=== PATIENT | female | born 2000 | race Caucasian/White ===

== ENCOUNTER 2020-08-28 19:42 | Emergency (ER) | payer BC ==
[~2020-08-28] VITALS: Ht 157.5 cm; Wt 91.3 kg
[2020-08-28 19:55] VITALS: BP 110/70
--- NOTE | 2020-08-28 20:00 | PHYS DOC ---
General Adult EDM: Chief Complaint: Toe pain HPI: HPI: Patient is a 20-year-old female presents emergency department with complaints of swelling, pain, and bruising to the right lateral foot after she accidentally kicked a stove last night. Patient denies any numbness, tingling, or weakness of the affected extremity. She states she has been able to bear weight but has ambulated with a limp. She currently rates her pain a 6 out of 10 on the pain scale, she denies taking anything for pain relief prior to arrival. Review of Systems: Review of Systems: Complete ROS is negative unless otherwise noted in HPI. Allergies: Allergies: Allergies Coded Allergies Type Severity Reaction Last Updated Verified No Known Drug Allergies 08/28/20 No Physical Exam: PE: See Above Constitutional: Well developed, well nourished, no acute distress, non-toxic appearance. [] HENT: Normocephalic, atraumatic, bilateral external ears normal, nose normal, obese. [] Eyes: PERRLA, EOMI, conjunctiva normal, no discharge. [] Neck: Normal range of motion, no stridor. [] Cardiovascular:Heart rate regular rhythm Lungs & Thorax: Respirations even and unlabored, no retractions, no respiratory distress Skin: Warm, dry, no erythema, no rash, bruising to the lateral right foot. [] Extremities: Right fifth toe: Tenderness to palpation without obvious deformity or crepitus, no cyanosis, ROM limited due to pain, normal sensation, 1+ edema; right foot: Distal lateral tenderness to palpation without obvious deformity or crepitus, 1+ edema, no cyanosis, normal sensation, 2+ pedal pulse Neurologic: Alert and oriented X 3, no focal deficits noted. [] Psychologic: Affect normal, judgement normal, mood normal. [] EKG: EKG: [] Radiology/Procedures: Radiology/Procedures: PROCEDURE: FOOT RIGHT 3V 3 views the right foot dated 08/28/2020. No comparison available. CLINICAL INDICATION: Fifth toe pain and swelling after injury. FINDINGS: 3 views the right foot show a transverse fracture through the base of fifth proximal phalanx, mildly displaced. There is overlying soft tissue swelling. No additional fractures are seen. No periostitis or bone destruction. IMPRESSION: Mildly displaced fracture of the fifth proximal phalanx. Heart Score: Risk Factors: Risk Factors: DM, Current or recent (<one month) smoker, HTN, HLP, family history of CAD, obesity. Risk Scores: Score 0 - 3: 2.5% MACE over next 6 weeks - Discharge Home Score 4 - 6: 20.3% MACE over next 6 weeks - Admit for Clinical Observation Score 7 - 10: 72.7% MACE over next 6 weeks - Early Invasive Strategies Course & Med Decision Making: Course & Med Decision Making Pertinent Labs and Imaging studies reviewed. (See chart for details) [] Dragon Disclaimer: Dragon Disclaimer: This electronic medical record was generated, in whole or in part, using a voice recognition dictation system. Departure Departure: Impression: Primary Impression: Fracture of fifth toe, right, closed Qualified Codes: S92.501A - Displaced unspecified fracture of right lesser toe(s), initial encounter for closed fracture Disposition: 01 DC HOME SELF CARE/HOMELESS Condition: STABLE Referrals: [facility] (PCP) BRAULIO BARRETT MD Patient Instructions: George Taping of Toes, Toe Fracture Additional Instructions: Fill the prescription and take it as directed. George tape toes as instructed. You may take Tylenol as needed for pain, take the hydrocodone for severe pain only, DO NOT TAKE MORE THAN 4000 mg of Tylenol in a 24 hour period. Recommend ice, elevation, and rest of the affected foot. Follow-up with Dr. Barrett next week, return to the ER if your symptoms worsen. Scripts Hydrocodone/Acetaminophen (Hydrocodone-Acetamin 5-325 mg) 1 Each Tablet 0.5-1 EACH PO Q6HRS PRN for SEVERE PAIN 7-10 for 3 Days, #10 TAB 0 Refills Prov: RUSSELL DOLAN WATER QUALITY TECHNICIAN 08/28/20 RUSSELL DOLAN WATER QUALITY TECHNICIAN Aug 28, 2020 20:00
--- NOTE | 2020-08-28 20:19 | RAD ---
3 views the right foot dated 08/28/2020. No comparison available. CLINICAL INDICATION: Fifth toe pain and swelling after injury. FINDINGS: 3 views the right foot show a transverse fracture through the base of fifth proximal phalanx, mildly displaced. There is overlying soft tissue swelling. No additional fractures are seen. No periostitis or bone destruction. IMPRESSION: Mildly displaced fracture of the fifth proximal phalanx. Electronically signed by: Errol Robles MD (08/28/2020 8:16 PM) [id number]
[2020-08-28] MEDS ORDERED: HYDR-2759 PO (20:30)
== END 2020-08-28 20:40 | disposition home or self-care (01) ==
LOC: ER 19:42
DX: S92.511A Displaced fracture of proximal phalanx of right lesser toe(s), initial encounter for closed fracture (principal); W22.8XXA Striking against or struck by other objects, initial encounter; Y93.89 Activity, other specified; Y92.89 Other specified places as the place of occurrence of the external cause; Y99.8 Other external cause status
CPT/HCPCS: 73630; 99283